=== PATIENT | male | born 1970 | race Caucasian/White ===

== ENCOUNTER 2020-06-22 12:12 | Emergency (ER) | payer BC, OTHER ==
[2020-06-22] MEDS ORDERED: HYDROmorphone 2 MG/ML SDV IVPUSH ONE (12:24)
[2020-06-22] MEDS ORDERED: HYDROmorphone 2 MG/ML SDV ONE ×2 (12:35→13:47)
[2020-06-22] MEDS ORDERED: Ketorolac 60 MG/2 ML SDV IVPUSH ONE (12:58)
--- NOTE | 2020-06-22 13:10 | EDM.PDOC ---
ED HPI GENERAL MEDICAL PROBLEM - General Chief Complaint: General Stated Complaint: LEFT ARM/SHOULDER INJURY Time Seen by Provider: 06/22/20 12:25 Source of Information: Reports: Patient History Limitations: Reports: No Limitations - History of Present Illness INITIAL COMMENTS - FREE TEXT/NARRATIVE: Patient was working, lifted a heavy object and felt a pain in his left bicep. I mmediate swelling to area. Onset: Today Location: Reports: Upper Extremity, Left Quality: Reports: Ache Severity: Moderate Improves with: Reports: Cold Therapy, Medication Worsens with: Reports: Movement Associated Symptoms: Reports: No Other Symptoms Left Upper Arm Pain Score (Numeric/FACES): 6 - Related Data Allergies Allergy/AdvReac Type Severity Reaction Status Date / Time No Known Allergies Allergy Verified 06/22/20 12:26 Home Meds: Home Meds Venlafaxine [Effexor] 75 mg PO DAILY 06/22/20 [History] lisinopriL [Lisinopril] 20 mg PO DAILY 06/22/20 [History] Past Medical History Cardiovascular History: Reports: Hypertension Musculoskeletal History: Reports: Other (See Below) Other Musculoskeletal History: back surgery lumbar fusion Social & Family History - Family History Family Medical History: Noncontributory - Tobacco Use Smoking Status *Q: Light Tobacco Smoker Years of Tobacco use: 20 Packs/Tins Daily: 0.5 - Caffeine Use Caffeine Use: Reports: Coffee, Energy Drinks - Recreational Drug Use Recreational Drug Use: No ED ROS GENERAL - Review of Systems Review Of Systems: See Below Constitutional: Reports: No Symptoms HEENT: Reports: No Symptoms Respiratory: Reports: No Symptoms Cardiovascular: Reports: No Symptoms Endocrine: Reports: No Symptoms GI/Abdominal: Reports: No Symptoms : Reports: No Symptoms Musculoskeletal: Reports: Arm Pain, Muscle Pain Skin: Reports: No Symptoms Neurological: Reports: No Symptoms. Denies: Numbness, Tingling Psychiatric: Reports: No Symptoms ED EXAM, GENERAL - Physical Exam Exam: See Below Free Text/Narrative:: No pain on exam to anterior shoulder or elbow. Marked swelling to bicep left arm. Pain with palpation to distal tendon. Spoke with ortho in [place]. Patient will follow up tomorrow morning on [place] with Dr. Pena. Pain controlled in ED with IV dilaudid and toradol. CMS +. Hilario wrap and ice applied. Exam Limited By: No Limitations General Appearance: Alert, Mild Distress Head: Atraumatic, Normocephalic Neck: Normal Inspection, Non-Tender Respiratory/Chest: No Respiratory Distress, No Accessory Muscle Use, Chest Non- Tender Cardiovascular: Normal Peripheral Pulses. No: No JVD Peripheral Pulses: 3+: Brachial (L), Brachial (R), Radial (L), Radial (R) Back Exam: Normal Inspection Extremities: Arm Pain Neurological: Alert, Oriented, No Motor/Sensory Deficits Psychiatric: Normal Affect Skin Exam: Warm, Dry, Intact Course - Vital Signs Last Recorded V/S: Last Vital Signs Temp Pulse 120 H 06/22/20 12:15 Resp 20 06/22/20 12:15 BP 144/102 H 06/22/20 12:15 Pulse Ox 98 06/22/20 12:15 - Orders/Labs/Meds Orders: Active Orders 24 hr Category Date Time Status Ketorolac [Toradol] Med 06/22/20 12:58 Once 15 mg IVPUSH ONETIME ONE Meds: Medications Discontinued Medications Generic Name Dose Route Start Last Admin Trade Name Eladio PRN Reason Stop Dose Admin Hydromorphone HCl 1 mg 06/22/20 12:24 06/22/20 12:29 Dilaudid IVPUSH 06/22/20 12:25 1 mg ONETIME ONE Administration Hydromorphone HCl Confirm 06/22/20 12:35 06/22/20 12:29 Dilaudid Administered 06/22/20 12:36 Not Given Dose 2 mg .ROUTE .STK-MED ONE Departure - Departure Time of Disposition: 13:30 Disposition: Home, Self-Care 01 Condition: Good Clinical Impression: Biceps strain - Discharge Information *PRESCRIPTION DRUG MONITORING PROGRAM REVIEWED*: Not Applicable *COPY OF PRESCRIPTION DRUG MONITORING REPORT IN PATIENT MATEUS: Not Applicable Instructions: Distal Biceps Tendon Tear, How to Use Cold Therapy Referrals: PCP,None [Primary Care Provider] - Additional Instructions: follow up with ortho at [address] Dr[address] Pena in [place]. Take 600-800mg Ibuprofen every 6 hours with food for pain and inflammation, use ice to area. Hilario bandage for compression and comfort. Expect bruising.. Gently move hand and fingers. Please return to ED for any increased or new concerning symptoms, numbness, tingling, cold fingers. Sepsis Event Note (ED) - Evaluation Sepsis Screening Result: No Definite Risk - Focused Exam Vital Signs: Vital Signs Pulse Resp BP Pulse Ox 06/22/20 12:15 120 H 20 144/102 H 98 - My Orders Last 24 Hours: My Active Orders 06/22/20 12:58 Ketorolac [Toradol] 15 mg IVPUSH ONETIME ONE - Assessment/Plan Last 24 Hours: My Active Orders 06/22/20 12:58 Ketorolac [Toradol] 15 mg IVPUSH ONETIME ONE
[2020-06-22] MEDS ORDERED: Ketorolac 30 MG/ML SDV ONE (13:11)
[2020-06-22] MEDS ORDERED: HYDROmorphone 2 MG/ML SDV IM ONE (13:34)
== END 2020-06-22 13:58 | disposition home or self-care (01) ==
LOC: LB.ED 12:12
DX: S46.212A Strain of muscle, fascia and tendon of other parts of biceps, left arm, initial encounter (principal); I10 Essential (primary) hypertension; F17.290 Nicotine dependence, other tobacco product, uncomplicated; Z79.899 Other long term (current) drug therapy; X50.0XXA Overexertion from strenuous movement or load, initial encounter
CPT/HCPCS: 96372; 96374; 96375; 99283; J1170; J1885; 99282